=== PATIENT | female | born 1975 | race Caucasian/White ===

== ENCOUNTER → 2016-07-01 | Outpatient (CLI) | payer OTHER ==
[~2016-07-01] MED LIST: MTR600X PO; OXYC-57 PO; PRENTAB26 PO; RANI150T3 PO
[2016-07-01 14:53] LABS: URINE APPEARANCE CLEAR (CLEAR); URINE BILIRUBIN NEG (NEG); URINE COLOR YELLOW; URINE EPITHELIAL CELL AUTO >30 /lpf (0-5); URINE NITRITE NEG (NEG); UROBILINOGEN NEG (NEG)
[2016-07-01 15:00] LABS: MANUAL MICROSCOPIC REQUIRED? NO; REVIEW REQ? NO
== END | disposition home or self-care (01) ==
LOC: C.LABSPEC 13:58
PROVIDERS: ATTEND Family Medicine
DX: O09.523 Supervision of elderly multigravida, third trimester (principal)

== ENCOUNTER → 2016-07-01 | Outpatient (CLI) | payer OTHER ==
[2016-07-01 12:28] LABS: HEMATOCRIT 34.2 % (37-47)
[2016-07-01 12:54] LABS: GTGD 50 Grams
== END | disposition home or self-care (01) ==
LOC: C.LAB1850 10:00
PROVIDERS: ATTEND Obstetrics & Gynecology
DX: O09.523 Supervision of elderly multigravida, third trimester (principal)

== ENCOUNTER → 2016-08-26 | Outpatient (CLI) | payer OTHER | END | disposition home or self-care (01) | LOC: C.LABSPEC 11:33 | PROVIDERS: ATTEND Obstetrics & Gynecology | DX: O09.523 Supervision of elderly multigravida, third trimester (principal) ==

== ENCOUNTER 2016-09-20 02:59 | Inpatient (IN) | payer OTHER ==
--- NOTE | 2016-09-19 14:48 | PAT Medication Instructions ---
Service Date Sep 19, 2016. Current Home Medication List Multivit/Min/Iron/Fol Ac/Pren ( Vitamin), 1 TAB PO QAM Ranitidine Hcl (Zantac), 150 MG PO QAM Medication Instructions For Your Scheduled Surgery - Hold the following medications the morning of surgery: Multivit/Min/Iron/Fol Ac/Pren ( Vitamin), 1 TAB PO QAM - Take the following medications the morning of surgery with a sip of water: Ranitidine Hcl (Zantac), 150 MG PO QAM (if needed) If you have any questions please call us at [phone] or [phone] ( [place]) or [phone]
[2016-09-19 15:19] LABS: BASO % 0.1 %; BASO ABS # 0.01 K/uL (0-0.2); COMPLETE YES; EOS % 0.7 %; HEMATOCRIT 33.3 % (37-47); IG% 0.1 %; LYMPH % 24.2 %; LYMPH ABS # 1.96 K/uL (1.2-3.4); MEAN CELL VOLUME 86.7 fL (80-100); MEAN CORPUSCULAR HEMOGLOBIN 30.2 pg (25-34); MEAN CORPUSCULAR HGB CONC 34.8 g/dl (32-36); MEAN PLATELET VOLUME 10.6 fL (7.4-10.4); MONO % 4.9 %; PLATELET COUNT 195 K/uL (130-400); RED BLOOD COUNT 3.84 M/uL (4.2-5.4)
[~2016-09-20] VITALS: Ht 162.6 cm; Wt 71.4 kg
[2016-09-20] VITALS (11 sets, daily range): BP systolic 108–127; BP diastolic 67–75; PULSE 70–80; TEMP 36.4–36.8; O2SAT 97–99; Ht 162.6 cm; Wt 71.4 kg
[~2016-09-20 02:59] MED LIST changes: -MTR600X PO; -OXYC-57 PO
[2016-09-20 06:00] LABS: BASO % 0.3 %; BASO ABS # 0.03 K/uL (0-0.2); EOS % 1.6 %; HEMATOCRIT 34.7 % (37-47); IG% 0.2 %; LYMPH % 30.7 %; LYMPH ABS # 2.82 K/uL (1.2-3.4); MEAN CELL VOLUME 88.5 fL (80-100); MEAN CORPUSCULAR HEMOGLOBIN 30.6 pg (25-34); MEAN PLATELET VOLUME 10.6 fL (7.4-10.4); MONO % 7.1 %; NEUT % 60.1 %; PLATELET COUNT 202 K/uL (130-400); RED BLOOD COUNT 3.92 M/uL (4.2-5.4)
[2016-09-20] MEDS ORDERED: CEFAZOLIN 2000 MG/60 ML D5W IV SCH (06:00)
[2016-09-20] MEDS ORDERED: CITRIC ACID/SODIUM CITRATE 15 ML UDC PO SCH (06:00)
[2016-09-20] MEDS ORDERED: LACTATED RINGER'S 1000ML 1,000 ML IV SCH ×2 (06:00→08:43)
[2016-09-20 06:03] LABS: COMPLETE YES; MEAN CORPUSCULAR HGB CONC 34.6 g/dl (32-36)
[2016-09-20] MEDS ORDERED: MoRPHine SULFATE PF 1 MG/ML 10 ML AMP/VIAL ONE (07:06)
[2016-09-20] MEDS ORDERED: SODIUM CHLORIDE 0.9% 1000ML 1,000 ML IV PRN (07:23)
[2016-09-20] MEDS ORDERED: NALOXONE HCL INJ 0.08 MG in SYRINGE 1.8 ML IV PRN (07:23)
[2016-09-20] MEDS ORDERED: NALOXONE HCL INJ 1 MG in SODIUM CHLORIDE 0.9% 1000ML 1,000 ML IV PRN ×4 (07:23)
[2016-09-20] MEDS ORDERED: LACTATED RINGER'S 1000ML 500 ML IV PRN (07:23)
[2016-09-20] MEDS ORDERED: PHENYLEPHRINE 100MCG/ML 5ML SYR IV PRN (07:30)
[2016-09-20] MEDS ORDERED: ONDANSETRON INJ 2 MG/ML 2 ML VIAL IV PRN ×2 (07:30)
[2016-09-20] MEDS ORDERED: KETOROLAC TROMETHAMINE 30 MG/ML VIAL IV. PRN (07:30)
[2016-09-20] MEDS ORDERED: NALBUPHINE HCL INJ 10 MG/ML AMP IV PRN (07:30)
[2016-09-20] MEDS ORDERED: EpHEDrine SULFATE INJ 50 MG/ML AMP IV PRN ×2 (07:30)
[2016-09-20] MEDS ORDERED: PROMETHAZINE HCL INJ 25 MG in SODIUM CHLORIDE 0.9% 50ML 50 ML IV PRN (07:30)
[2016-09-20] MEDS ORDERED: NALOXONE HCL 0.4 MG/1 ML VIAL/CARP IV PRN (07:30)
[2016-09-20] MEDS ORDERED: PROMETHAZINE HCL INJ 12.5 MG in SODIUM CHLORIDE 0.9% 50ML 50 ML IV PRN (07:30)
[2016-09-20] MEDS ORDERED: MoRPHine SULFATE PF 1 MG/ML 10 ML AMP/VIAL EPI PRN (07:30)
[2016-09-20] MEDS ORDERED: MEPERIDINE HCL 25 MG/ML CARP IV PRN ×2 (07:30)
[2016-09-20] MEDS ORDERED: ATROPINE SULFATE 0.1 MG/ML 5ML SYR IV PRN (07:30)
[2016-09-20] MEDS ORDERED: DiphenhydrAMINE HCL 50 MG/ML VIAL IV PRN (07:30)
[2016-09-20] MEDS ORDERED: NO NARCOTICS OR SEDATIVES SCH (07:30)
--- NOTE | 2016-09-20 07:56 | HISTORY & PHYSICAL EXAMINATION ---
DATE OF ADMISSION: 09/20/2016 REASON FOR ADMISSION: Planned repeat section. HISTORY OF PRESENT ILLNESS: This is a 41-year-old -0-1-1 with a vega intrauterine at full term. She is presenting for a planned repeat section with tubal ligation. She declines trial of labor after . Her has been complicated by advanced maternal age. MEDICATIONS LIST: vitamins, Clindagel, and Zantac. ALLERGIES: No known drugs. PAST MEDICAL HISTORY: Varicella in childhood, prior ovarian cysts and cervical dysplasia. PAST SURGICAL HISTORY: LEEP in 1995 and sebaceous cysts carcinoma removed, wisdom teeth removed and tonsillectomy. OBSTETRIC HISTORY: Prior SAB in 2011 and prior full term section for failure to progress in 2013. 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 PHYSICAL EXAMINATION: VITAL SIGNS: Blood pressure the day preoperative was 124/74, weight 157. GENITOURINARY: Day of delivery, heart tones are 140, moderate variability, positive accels, no decels. [place] is showing irritability which the patient cannot appreciate. Cervical exam deferred at this time. HEART: Shows regular rate and rhythm. LUNGS: Clear to auscultation bilaterally. ABDOMEN: Gravid and nontender. EXTREMITIES: Without edema. ASSESSMENT AND PLAN: A 41-year-old 3, para 1-0-1-1 at full term for planned repeat section and tubal ligation. The patient was consented yesterday in the office for both and again confirmed this morning in labor and delivery that she desires tubal ligation. She understands the permanent irreversible nature and the risk of regret. She desires to proceed.
[2016-09-20] MEDS ORDERED: ONDANSETRON INJ 2 MG/ML 2 ML VIAL ONE (08:18)
[2016-09-20] MEDS ORDERED: METOCLOPRAMIDE HCL INJ 5 MG/ML 2 ML VIAL ONE (08:18)
[2016-09-20] MEDS ORDERED: EpHEDrine SULFATE 50MG/5ML SYR ONE (08:19)
[2016-09-20] MEDS ORDERED: OXYTOCIN INJ 10 UNITS/ML VIAL ONE (08:24)
[2016-09-20] MEDS ORDERED: PHENYLEPHRINE 100MCG/ML 5ML SYR ONE (08:24)
--- NOTE | 2016-09-20 08:43 | [facility] Post Operative Brief Note ---
Immediate Operative Summary Operative Date Sep 20, 2016. Pre-Operative Diagnosis 1. Prior Caesearean Section 2. Desires Sterilization 3. Declines Post-Operative Diagnosis Same Procedure(s) Performed 1. Repeat lower uterine transverse caesarean section for the of a viable male child at 0756. 2. Bilateral Tubal Ligation Surgeon Dr. Granda Marketing Program Coordinator Surgeon(s) Dr. Byrne Estimated Blood Loss 600cc Findings NOrmal tubes and ovaries bilaterally Specimens Placenta: Hold Cord blood obtained Right and left portions of the fallopian tubes Complication(s) None Disposition L&D
[2016-09-20] MEDS ORDERED: LANOLIN OINT EXT PRN ×2 (08:45)
[2016-09-20] MEDS ORDERED: DIPHTHERIA/TETANUS/PERTUSSIS 0.5 ML SYR/VIAL IM. ONE (08:45)
[2016-09-20] MEDS ORDERED: BENZOCAINE 20% AER SPR 82.5 GM CAN EXT PRN (08:45)
[2016-09-20] MEDS ORDERED: HYDROCORTISONE ACETATE 25 MG SUPP PR PRN (08:45)
[2016-09-20] MEDS ORDERED: SUPERCREAM 0.870 % 15GM JAR EXT PRN (08:45)
--- NOTE | 2016-09-20 09:04 | [facility] Post Operative Brief Note ---
Immediate Operative Summary Operative Date Sep 20, 2016. Pre-Operative Diagnosis 1. Prior Caesearean Section 2. Desires Sterilization 3. Declines Post-Operative Diagnosis Same Procedure(s) Performed 1. Repeat lower uterine transverse caesarean section for the of a viable male child at 0756. 2. Bilateral Tubal Ligation Surgeon Dr. Granda Hospice Registered Nurse Surgeon(s) Dr. Byrne Estimated Blood Loss 600cc Findings Delivered a viable male , APGARS 9/9. Weight 6lbs 14oz. Normal uterus, fallopian tubes and ovaries bilaterally. Specimens Placenta: Hold Cord blood obtained Right and left portions of the fallopian tubes Drains Rider to gravity Anesthesia Spinal Complication(s) None Disposition L&D
[2016-09-20] MEDS: KETOROLAC TROMETHAMINE 30 MG/ML VIAL IV. PRN ×3 (09:37→23:00)
[2016-09-20] MEDS ORDERED: OXYTOCIN INJ 30 UNITS in LACTATED RINGER'S 1000ML 1,000 ML IV SCH (10:00)
[2016-09-20] MEDS: SIMETHICONE 80 MG CHEW PO SCH ×3 (12:27→19:39)
--- NOTE | 2016-09-20 15:42 | Anesthesiology Progress Note ---
Anesthesia Post Op Note Date & Time Sep 20, 2016 at 15:41 Vital Signs Pain Intensity: 0.0 Vital Signs Past 12 Hours Date Time Temp Pulse Resp B/P Pulse Ox O2 Delivery O2 Flow Rate FiO2 09/20/16 12:50 20 98 09/20/16 12:50 36.6 76 20 127/75 98 Room Air 09/20/16 11:50 97 Room Air 09/20/16 11:50 20 97 09/20/16 11:50 36.4 70 20 111/67 97 Room Air Notes Mental Status: alert / awake / arousable, participated in evaluation Pt Amnestic to Procedure: Yes Nausea / Vomiting: adequately controlled Pain: adequately controlled Airway Patency, RR, SpO2: stable & adequate BP & HR: stable & adequate Hydration State: stable & adequate Anesthetic Complications: no major complications apparent
--- NOTE | 2016-09-20 15:50 | OPERATIVE REPORT ---
DATE OF OPERATION: 09/20/2016 PREOPERATIVE DIAGNOSES: 1. Prior section. 2. Desires sterilization. 3. Declines vaginal after . POSTOPERATIVE DIAGNOSES: Same. PROCEDURE: Repeat lower uterine transverse section for the of a viable male child at 7:56 a.m., bilateral tubal ligation. SURGEON: Dr. Granda. COMPENSATION ADMINISTRATOR: [email or web address]. ESTIMATED BLOOD LOSS: 600 mL FINDINGS: Normal tubes and ovaries bilaterally. SPECIMENS: Placenta for hold and cord blood and right and left portions of fallopian tubes. COMPLICATIONS: None. DISPOSITION: Stable to labor and delivery. DESCRIPTION: Hilda was placed on the table in the supine position with a leftward tilt, prepped and draped in standard sterile fashion and a hard time-out was taken prior to proceeding. After adequate anesthesia had been established, the prior Pfannenstiel incision was reopened using a scalpel. This was carried down sharply to the fascia which was incised using Bovie electrocautery. The fascia was elevated and both sharply and bluntly dissected off the underlying rectus. The midline of the rectus was naturally . The peritoneum was bluntly entered. A bladder blade was placed. The lower uterine segment was examined and found to be well developed. The bladder flap was created and hysterotomy was then created with a fresh blade with final entry being made to the uterus in a blunt manner using the surgeon's finger. The hysterotomy was extended and the head of the was then gently elevated to the hysterotomy where it was delivered using mild fundal pressure. Once the was delivered, the cord was doubly clamped and cut and the infant was taken to the warmer for pediatric attention. Of note, the male was noted to urinate while on the surgical field, he also was able to hypoxemic respiratory efforts and move all 4 extremities equally. The placenta was then manually extracted. The uterus was exteriorized, cleared of all clot and debris using a damp lap sponge and the hysterotomy was repaired in 2 layer fashion using 0 Vicryl suture with a locked inner layer and a running imbricating layer. Once this was done, the attention was turned to the fallopian tubes. The patient was asked one final time to confirm that she wished permanent sterilization, which she confirmed that she did. Each tube was in turn elevated using a [place] clamp. A knuckle of tube was isolated using a double ligature of chromic suture. The isolated knuckle of tube was excised using Metzenbaum scissors and sent for pathology. Once this had been completed on both sides, hemostasis was achieved at both stumps. The posterior gutter was cleared of all clot and debris. The uterus was then gently reinternalized. The hysterotomy was reexamined and found to be hemostatic. The patient was asked whether she would prefer her rectus muscles sutured together in the midline or not and she elected not. Fascia was then closed using #1 Vicryl suture in a running nonlocked manner. At the completion of which the fascia was examined and found to be free of any defect. The subcutaneous tissue was copiously irrigated and then gently reapproximated using 3-0 chromic. The skin was closed with 4-0 Monocryl and a Dermabond dressing was applied. The Rider was noted to be draining clear yellow urine and the patient was transferred in stable condition back to the recovery room after the procedure was completed. I attest to the content of the Intraoperative Record and any orders documented therein. Any exceptio ns are noted below.
[2016-09-20] MEDS: DOCUSATE SODIUM 100 MG CAP PO SCH (19:39)
[2016-09-21] VITALS: O2SAT 97
[2016-09-21] MEDS ORDERED: DC INTRASPINAL MORPHINE ONE
[2016-09-21] MEDS ORDERED: OXYCODONE/ACETAMINOPHEN 5-325 TAB PO PRN ×2 (00:01)
[2016-09-21] MEDS ORDERED: KETOROLAC TROMETHAMINE 30 MG/ML VIAL IV. PRN (00:01)
[2016-09-21] MEDS ORDERED: MEPERIDINE HCL 50 MG/ML CARP IV PRN (00:01)
[2016-09-21] MEDS ORDERED: ONDANSETRON INJ 2 MG/ML 2 ML VIAL IV PRN (00:01)
[2016-09-21] MEDS ORDERED: DiphenhydrAMINE HCL 50 MG/ML VIAL IV PRN (00:01)
[2016-09-21] MEDS ORDERED: MEPERIDINE HCL 75 MG/ML CARP IV PRN (00:01)
[2016-09-21] MEDS ORDERED: PROMETHAZINE HCL INJ 25 MG in SODIUM CHLORIDE 0.9% 50ML 50 ML IV PRN (00:01)
[2016-09-21 03:50] VITALS: BP 117/69; PULSE 92; TEMP 36.8; O2SAT 97
[2016-09-21] MEDS: IBUPROFEN 600 MG TAB PO PRN ×5 (04:52→20:40)
[2016-09-21 06:45] LABS: HEMATOCRIT 26.2 % (37-47); MEAN CELL VOLUME 87.9 fL (80-100); MEAN CORPUSCULAR HEMOGLOBIN 29.9 pg (25-34); MEAN PLATELET VOLUME 9.9 fL (7.4-10.4); PLATELET COUNT 151 K/uL (130-400); RED BLOOD COUNT 2.98 M/uL (4.2-5.4); WHITE BLOOD COUNT 13.51 K/uL (4.8-10.8)
[2016-09-21 07:05] LABS: BASO % 0.1 %; BASO ABS # 0.02 K/uL (0-0.2); COMPLETE YES; EOS % 0.7 %; IG% 0.2 %; LYMPH % 12.7 %; LYMPH ABS # 1.72 K/uL (1.2-3.4); MONO % 4.7 %; NEUT % 81.6 %
--- NOTE | 2016-09-21 07:26 | Progress Note ---
Subjective Sep 21, 2016. Subjective conversation w/ patient, physical exam Ambulation: ambulating normally Voiding: no voiding problems Passing Gas: Yes Diet Tolerance: Clear Liquids Lochia: Moderate Feeding Type: Breast Feeding Pain: controlled with motrin Review of Systems Constitutional: No chills, No fatigue, No fever, No problem reported, No sweats , No weakness, No weight loss Breast: No breast lump, No breast pain, No change in shape, No nipple discharge , No problem reported, No see HPI Female : No abnormal vaginal bleeding, No dysuria, No hematuria, No incontinence, No problem reported, No see HPI, No urinary frequency, No vaginal discharge Objective Vital Signs Date Time Temp Pulse Resp B/P Pulse Ox O2 Delivery O2 Flow Rate FiO2 09/21/16 03:50 36.8 92 20 117/69 97 Room Air 09/21/16 00:00 18 97 09/20/16 23:05 36.8 76 18 109/70 99 Room Air 09/20/16 23:05 99 Room Air 09/20/16 23:05 18 99 09/20/16 22:00 18 98 09/20/16 21:00 16 97 09/20/16 20:00 18 98 09/20/16 19:30 36.5 76 20 108/67 98 Room Air 09/20/16 19:30 20 98 09/20/16 18:00 16 99 09/20/16 17:00 16 98 09/20/16 16:00 18 99 09/20/16 15:20 36.7 80 18 114/73 98 Room Air 09/20/16 15:20 18 99 09/20/16 15:20 98 Room Air 09/20/16 12:50 20 98 09/20/16 12:50 36.6 76 20 127/75 98 Room Air 09/20/16 11:50 97 Room Air 09/20/16 11:50 20 97 09/20/16 11:50 36.4 70 20 111/67 97 Room Air Physical Exam General Appearance: WELL-APPEARING, NO APPARENT DISTRESS Abdomen: soft Fundus: Firm, Non-Tender, Relation to Umbilicus (at U) Incision Description: Clean, Dry & Intact Extremities: no calf tenderness Laboratory Results Last 24 Hours Test 09/21/16 06:17 White Blood Count 13.51 K/uL Red Blood Count 2.98 M/uL Hemoglobin 8.9 g/dL Hematocrit 26.2 % Mean Corpuscular Volume 87.9 fL Mean Corpuscular Hemoglobin 29.9 pg Mean Corpuscular Hemoglobin Concent 34.0 g/dl Platelet Count 151 K/uL Mean Platelet Volume 9.9 fL Neutrophils (%) (Auto) 81.6 % Lymphocytes (%) (Auto) 12.7 % Monocytes (%) (Auto) 4.7 % Eosinophils (%) (Auto) 0.7 % Basophils (%) (Auto) 0.1 % Neutrophils # (Auto) 11.02 K/uL Lymphocytes # (Auto) 1.72 K/uL Monocytes # (Auto) 0.63 K/uL Eosinophils # (Auto) 0.09 K/uL Basophils # (Auto) 0.02 K/uL RDW Standard Deviation 41.7 fL RDW Coefficient of Variation 13.2 % Immature Granulocyte % (Auto) 0.2 % Immature Granulocyte # (Auto) 0.03 K/uL Red Blood Cell Morphology Unremarkable Assessment and Plan Day#: 1 Continue Routine Care: stable post-op course continue current care plan.
[2016-09-21] MEDS: RANITIDINE HCL 150 MG TAB PO SCH (08:00)
[2016-09-21] MEDS: DOCUSATE SODIUM 100 MG CAP PO SCH ×2 (08:56→19:33)
[2016-09-21] MEDS: FERROUS SULFATE 325 MG TAB PO SCH (08:56)
[2016-09-21] MEDS: PRENATAL VITAMIN TAB PO SCH (08:57)
[2016-09-21] MEDS: SIMETHICONE 80 MG CHEW PO SCH ×4 (08:57→19:33)
[2016-09-21 09:00] VITALS: BP 114/71; PULSE 86; TEMP 36.7; O2SAT 96
[2016-09-21 16:15] VITALS: BP 109/69; PULSE 87; TEMP 36.9; O2SAT 96
[2016-09-21 23:15] VITALS: BP 112/69; PULSE 81; TEMP 36.6; O2SAT 96
[2016-09-22] MEDS: IBUPROFEN 600 MG TAB PO PRN ×6 (01:59→21:52)
[2016-09-22 07:29] VITALS: BP 118/72; PULSE 73; TEMP 36.6
[2016-09-22] MEDS: RANITIDINE HCL 150 MG TAB PO SCH (08:00)
[2016-09-22] MEDS: PRENATAL VITAMIN TAB PO SCH (08:43)
[2016-09-22] MEDS: DOCUSATE SODIUM 100 MG CAP PO SCH ×2 (08:43→20:20)
[2016-09-22] MEDS: SIMETHICONE 80 MG CHEW PO SCH ×4 (08:43→20:20)
[2016-09-22] MEDS: FERROUS SULFATE 325 MG TAB PO SCH (08:43)
--- NOTE | 2016-09-22 08:47 | Progress Note ---
Subjective Sep 22, 2016. Subjective conversation w/ patient, physical exam Ambulation: ambulating normally Voiding: no voiding problems Passing Gas: Yes Diet Tolerance: Regular Diet Lochia: Moderate Feeding Type: Breast Feeding Review of Systems Constitutional: No chills, No fever Respiratory: No cough Cardiac: No chest pain Abdomen: No nausea, No vomiting Objective Vital Signs Date Time Temp Pulse Resp B/P Pulse Ox O2 Delivery O2 Flow Rate FiO2 09/22/16 07:29 36.6 73 20 118/72 09/21/16 23:15 Room Air 09/21/16 23:15 36.6 81 16 112/69 96 Room Air 09/21/16 16:15 96 Room Air 09/21/16 16:15 36.9 87 18 109/69 96 Room Air 09/21/16 09:00 36.7 86 18 114/71 96 Room Air 09/21/16 09:00 96 Room Air Physical Exam General Appearance: WELL-APPEARING, NO APPARENT DISTRESS Respiratory/Chest: no respiratory distress, no accessory muscle use Cardiovascular: no edema Abdomen: non tender, soft Fundus: Firm Incision Description: Clean, Dry & Intact Extremities: no calf tenderness Assessment and Plan Post-Op Day#: 2 Continue Routine Care: Recovering well. Patient desires stay until POD#3 at this time.
[2016-09-22 17:00] VITALS: BP 112/74; PULSE 81; TEMP 36.9; O2SAT 97
[2016-09-22 23:50] VITALS: BP 120/77; PULSE 74; TEMP 36.6; O2SAT 99
[2016-09-23] MEDS: IBUPROFEN 600 MG TAB PO PRN ×3 (03:42→11:44)
--- NOTE | 2016-09-23 06:33 | Medical Student: [facility] ---
Med Student CAMPUS RECEPTIONIST Progress Nt Date of Service Sep 23, 2016. Subjective conversation w/ patient Ambulation: ambulating normally Voiding: no voiding problems Passing Gas: Yes Diet Tolerance: Regular Diet Lochia: Small Feeding Type: Breast Feeding Pain: 2/10, controlled with motrin Review of Systems Constitutional: No chills, No fever Respiratory: No cough, No shortness of breath Cardiac: No chest pain, No edema, No palpitations Breast: No breast pain, No problem reported Abdomen: + pain ( incision site mildly painful), No nausea, No vomiting Female : No dysuria, No urinary frequency Objective Vital Signs Date Time Temp Pulse Resp B/P Pulse Ox O2 Delivery O2 Flow Rate FiO2 09/22/16 23:50 Room Air 09/22/16 23:50 36.6 74 16 120/77 99 Room Air 09/22/16 17:00 36.9 81 18 112/74 97 Room Air 09/22/16 17:00 97 Room Air 09/22/16 08:55 Room Air 09/22/16 07:29 36.6 73 20 118/72 Physical Exam General Appearance: WELL-APPEARING, NO APPARENT DISTRESS Respiratory/Chest: lungs clear, normal breath sounds, no respiratory distress Cardiovascular: regular rate, rhythm, no edema, no gallop, no murmur Abdomen: normal bowel sounds, soft Fundus: Firm, Tender, Relation to Umbilicus (3cm below umbilicus) Extremities: non-tender, no pedal edema, no calf tenderness Medications Current Inpatient Medications Medications (Trade) Dose Ordered Sig/Anca Route Start Time Stop Time Status Last Admin Dose Admin Prenat Multivit/ [place]/Iron/Folic Ac ( Vitamin Tab) 1 tab QAM PO 09/21/16 08:00 10/21/16 07:59 09/22/16 08:43 1 TAB Ranitidine HCl 150 mg 150 mg QAM PO 09/21/16 08:00 10/21/16 07:59 Lactated Ringer's (Lr 1000ml) 1,000 ml @ 125 mls/hr Q8H IV 09/20/16 08:43 10/20/16 08:42 09/20/16 17:27 125 MLS/HR Ketorolac Tromethamine (Toradol Inj) 30 mg Q6H PRN IV. 09/21/16 00:01 09/26/16 00:00 Meperidine HCl (Demerol Inj) 50 mg Q4H PRN IV 09/21/16 00:01 10/05/16 00:00 Meperidine HCl (Demerol Inj) 75 mg Q4H PRN IV 09/21/16 00:01 10/05/16 00:00 Oxycodone/ Acetaminophen (Percocet 5-325mg Tab) 1 tab Q4H PRN PO 09/21/16 00:01 10/05/16 00:00 Oxycodone/ Acetaminophen (Percocet 5-325mg Tab) 2 tab Q4H PRN PO 09/21/16 00:01 10/05/16 00:00 Ibuprofen 600 mg 600 mg Q4H PRN PO 09/21/16 00:01 10/21/16 00:00 Future hold 09/23/16 03:42 600 MG Promethazine HCl/ Sodium Chloride (Phenergan Inj/ Nss 50ml) 51 ml @ 204 mls/hr Q4H PRN IV 09/21/16 00:01 10/21/16 00:00 Ondansetron HCl (Zofran Inj) 4 mg Q4H PRN IV 09/21/16 00:01 10/21/16 00:00 Docusate Sodium (coLACE CAP) 100 mg BID PO 09/20/16 20:00 10/20/16 19:59 09/22/16 20:20 100 MG Cocaine HCl (Supercream 0.870% Cr) BID PRN EXT 09/20/16 08:45 10/04/16 08:44 Lanolin (Lanolin Oint) PRN PRN EXT 09/20/16 08:45 10/20/16 08:44 Hydrocortisone Acetate (Anusol Hc Supp) 25 mg BID PRN CA 09/20/16 08:45 10/20/16 08:44 Benzocaine (Dermoplast Aero Spr) 1 appln PRN PRN EXT 09/20/16 08:45 10/20/16 08:44 Simethicone (Mylicon Chew Tab) 80 mg QID PO 09/20/16 12:04 10/20/16 12:59 09/22/16 20:20 80 MG Diphenhydramine HCl (Benadryl Cap) 25 mg QID PRN PO 09/21/16 00:01 10/21/16 00:00 Diphenhydramine HCl (Benadryl Inj) 25 mg QID PRN IV 09/21/16 00:01 10/21/16 00:00 Ferrous Sulfate (Feosol Tab) 325 mg QAM PO 09/21/16 08:00 10/21/16 07:59 09/22/16 08:43 325 MG Assessment and Plan Post-Op Day Number: 3 Continue Routine Care: ASSESSMENT: Grabiel is a 41 year old [id number], post op day #3 from an elective repeat section and tubal ligation. was complicated by advanced maternal age. She is doing well clinically. Incision clean dry and intact. PLAN: Encourage ambulation as tolerated. Encourage . Motrin PRN for pain. Continue PO diet and fluids. No lifting heavier than baby for 2-3 weeks.
--- NOTE | 2016-09-23 06:48 | Progress Note ---
Subjective Sep 23, 2016. Subjective conversation w/ patient, physical exam, lab review Ambulation: ambulating normally Voiding: no voiding problems Passing Gas: Yes Diet Tolerance: Regular Diet Lochia: Small Feeding Type: Breast Feeding Pain: 1-2/10 improves with medication Comment: Patient was seen at the bedside. No acute event overnight. Review of Systems Constitutional: No fever Respiratory: No cough, No shortness of breath Cardiac: No chest pain, No edema Breast: No breast lump Abdomen: No nausea, No pain, No vomiting Female : No dysuria Denies headache Objective Vital Signs Date Time Temp Pulse Resp B/P Pulse Ox O2 Delivery O2 Flow Rate FiO2 09/22/16 23:50 Room Air 09/22/16 23:50 36.6 74 16 120/77 99 Room Air 09/22/16 17:00 36.9 81 18 112/74 97 Room Air 09/22/16 17:00 97 Room Air 09/22/16 08:55 Room Air 09/22/16 07:29 36.6 73 20 118/72 Physical Exam General Appearance: WELL-APPEARING, WD/WN Respiratory/Chest: chest non-tender, lungs clear Cardiovascular: regular rate, rhythm Abdomen: normal bowel sounds, non tender, soft Fundus: Firm, Relation to Umbilicus (3cm below) Incision Description: Clean, Dry & Intact Extremities: non-tender, no pedal edema, no calf tenderness Medications Current Inpatient Medications Medications (Trade) Dose Ordered Sig/Anca Route Start Time Stop Time Status Last Admin Dose Admin Prenat Multivit/ [employer]/Iron/Folic Ac ( Vitamin Tab) 1 tab QAM PO 09/21/16 08:00 10/21/16 07:59 09/22/16 08:43 1 TAB Ranitidine HCl 150 mg 150 mg QAM PO 09/21/16 08:00 10/21/16 07:59 Lactated Ringer's (Lr 1000ml) 1,000 ml @ 125 mls/hr Q8H IV 09/20/16 08:43 10/20/16 08:42 09/20/16 17:27 125 MLS/HR Ketorolac Tromethamine (Toradol Inj) 30 mg Q6H PRN IV. 09/21/16 00:01 09/26/16 00:00 Meperidine HCl (Demerol Inj) 50 mg Q4H PRN IV 09/21/16 00:01 10/05/16 00:00 Meperidine HCl (Demerol Inj) 75 mg Q4H PRN IV 09/21/16 00:01 10/05/16 00:00 Oxycodone/ Acetaminophen (Percocet 5-325mg Tab) 1 tab Q4H PRN PO 09/21/16 00:01 10/05/16 00:00 Oxycodone/ Acetaminophen (Percocet 5-325mg Tab) 2 tab Q4H PRN PO 09/21/16 00:01 10/05/16 00:00 Ibuprofen 600 mg 600 mg Q4H PRN PO 09/21/16 00:01 10/21/16 00:00 Future hold 09/23/16 03:42 600 MG Promethazine HCl/ Sodium Chloride (Phenergan Inj/ Nss 50ml) 51 ml @ 204 mls/hr Q4H PRN IV 09/21/16 00:01 10/21/16 00:00 Ondansetron HCl (Zofran Inj) 4 mg Q4H PRN IV 09/21/16 00:01 10/21/16 00:00 Docusate Sodium (coLACE CAP) 100 mg BID PO 09/20/16 20:00 10/20/16 19:59 09/22/16 20:20 100 MG Cocaine HCl (Supercream 0.870% Cr) BID PRN EXT 09/20/16 08:45 10/04/16 08:44 Lanolin (Lanolin Oint) PRN PRN EXT 09/20/16 08:45 10/20/16 08:44 Hydrocortisone Acetate (Anusol Hc Supp) 25 mg BID PRN [place] 09/20/16 08:45 10/20/16 08:44 Benzocaine (Dermoplast Aero Spr) 1 appln PRN PRN EXT 09/20/16 08:45 10/20/16 08:44 Simethicone (Mylicon Chew Tab) 80 mg QID PO 09/20/16 12:04 10/20/16 12:59 09/22/16 20:20 80 MG Diphenhydramine HCl (Benadryl Cap) 25 mg QID PRN PO 09/21/16 00:01 10/21/16 00:00 Diphenhydramine HCl (Benadryl Inj) 25 mg QID PRN IV 09/21/16 00:01 10/21/16 00:00 Ferrous Sulfate (Feosol Tab) 325 mg QAM PO 09/21/16 08:00 10/21/16 07:59 09/22/16 08:43 325 MG Assessment and Plan Post-Op Day#: 3 Continue Routine Care: A/P: This is a 41 y/o female, , s/p elective repeat and bilateral tubal ligation. She is ambulating and clinically stable to discharge. - Vital signs are reviewed and WNL (Tmax 36.9 ) - Last Hgb 8.9 - Blood type O+, GBS neg, Rubella Immune - No signs of depression. - Routine care - Discussed resting, feeding, pain control, mastitis, control, follow up in 6 weeks and reasons to call sooner, if necessary. - Continue with pain medication as needed, and continue vitamins. - Encourage breast feeding and educate about breast feeding - Patient understands and keen for home. - Plan to discharge home Resident Physician Supervision Note: I was present with Dr. Byrne during the history and exam. I discussed the case with the resident and agree with the findings and plan as documented in the note. Any exceptions or clarifications are listed here: [None] Documented By: Selena Granda
--- NOTE | 2016-09-23 07:00 | Discharge Instructions ---
Discharge Instructions Date of Service Sep 22, 2016. Admission Reason for Admission: Previous Section Discharge Discharge Diagnosis / Problem: S/p repeat elective & bilateral tubal ligation Discharge Goals Goal(s): Routine recovery after Medications Continue Dispensed Medications: supercream, dermaplast, tucks, lansinoh Activity Recommendations Activity Limitations: as noted below . Instructions / Follow-Up Instructions / Follow-Up ACTIVITY RECOMMENDATIONS: * Gradual return to full activity over the next 2-3 weeks. * No lifting - nothing heavier than baby over the next 2-3 weeks. * Do not engage in vigorous exercise, sexual activity or sports until cleared by your physician. * Do not drive or operate any motorized equipment until cleared by your physician. * You may shower/bathe daily. MEDICATIONS: For discomfort or pain, you may use Acetaminophen (Tylenol), Ibuprofen (Advil), or Naproxen (Aleve) following the package directions. For constipation you may use Colace following the package directions. BREAST CARE: If you are not breast feeding: * Wear a supportive bra 24 hours a day for one to two weeks. * Avoid stimulating your breasts and nipples as much as possible during the first few weeks after delivery. * When taking a shower, have the warm water hit your back, not breasts. * When your breasts feel full, apply ice packs. Usually three to four times a day helps ease the discomfort. * Take a mild pain medication (Tylenol / Motrin) when you are uncomfortable. If breast feeding: * Use breast milk to lubricate nipples. Lansinoh cream may be used for sore nipples. You do not need to remove cream prior to breast feeding. If using a different brand of cream, check the label for directions regarding removal of cream prior to nursing. * Wear a supportive bra. * If having problems with breasts or breast feeding, call a implementation consultant or your health care provider. SPECIAL CARE INSTRUCTIONS: When you are discharged from the hospital, it is important for you to follow the instructions listed below: * During the first week at home, you should be able to care for yourself and your baby. In addition, the usual light household activities are encouraged. * Limit your activities to the way you feel. Do not try to clean the house or move furniture. Be sensible. * If you actively engage in sports and have done so up until the time of your delivery, you may resume these activities as soon as you feel able. This may take up to one month or even longer. Use good judgment. * Continue to take your vitamins for at least six weeks after the of your baby. * Your diet need not be limited unless you were on a special diet before your delivery. Breast-feeding mothers need around 2500 calories per day and at least 64-80 ounces of fluid per day (8 to 10 glasses). * You should eat foods from the four major food groups. Crash diets or fad diets are to be avoided. Eating lean meats, fresh fruits and vegetables, low-fat dairy products, high fiber foods and a regular exercise program, will help you get back to your pre- weight without putting your health at risk. * Constipation is sometimes a problem after delivery. Take a mild laxative as needed. If breast feeding, Milk of Magnesia is acceptable to use. You may use a suppository or Fleets enema. * A daily shower or tub bath is suggested. Wash incision daily with warm soapy water and pat dry. It doesn't need to be covered unless drainage is present. * A bloody vaginal discharge will usually continue until around four weeks . A small amount of bleeding may continue for as long as six weeks. Vaginal discharge changes from the bright red bleeding after delivery to pink then brownish and finally yellowish-pink before becoming white and disappearing. * Bleeding may increase with activity. Your first period may come in 4-8 weeks. If you are breast feeding, your period may be delayed even longer. * [place] (sex) can begin whenever both you and your partner feel comfortable and do not have any form of genital infection. It is recommended that you wait at least six weeks for internal and external healing to occur. If you have questions, please talk to your health care practitioner. A condom should be used to prevent infection and . * Foreplay, gentle intercourse and lubrication is very important the first several times to prevent pain. A water-based lubricant such as K-Y jelly or Astroglide may be used. * If you have RH negative blood and your baby is RH positive, you will receive RHOGAM by injection prior to discharge. The nurse will give you a card to keep with you that has the date and place that you received RHOGAM after delivery. * During your care, you had a Rubella screen done to check for the presence of rubella antibodies in your blood. If your test was negative, you will receive a Rubella vaccine prior to discharge. This vaccine may cause a fever, soreness at the injection site and flu-like symptoms. If these symptoms persist, notify your health care practitioner. is not advised for one month after a Rubella vaccine. * Verbalizes understanding of car seat law as reviewed with patient nursing. * Car Seat hand-out given and reviewed with patient by nursing. * Shaken baby information reviewed with patient by nursing. Call you doctor if: * Heavy bleeding (saturating several pads an hour) or passing clots the size of your fist. * A fever >101 degrees F (38.3 degrees C) on two occasions four hours apart and /or chills. * Unusual pain in the pelvic or vaginal areas. * Call the doctor for any increased redness, drainage or swelling around the incision and any pain unrelieved by prescribed pain medication. * "Baby Blues" lasting longer than two weeks. If you have any questions or concerns, call your health care practitioner at . FOLLOW UP VISIT: * Please call the office at to schedule a 6 week examination. It is important you keep this appointment. It is important for you to make arrangements for either yearly or twice yearly check-ups thereafter. Current Hospital Diet Patient's current hospital diet: Regular OB Diet Discharge Diet Recommended Diet: Regular Diet Procedures Procedures Performed: 1. Repeat lower uterine transverse caesarean section for the of a viable male child at 0756. 2. Bilateral Tubal Ligation Pending Studies Studies pending at discharge: no Medical Emergencies . Who to Call and When: Medical Emergencies: If at any time you feel your situation is an emergency, please call [phone] immediately. . Non-Emergent Contact Non-Emergency issues call your: [facility] Faculty Assistant Call Non-Emergent contact if: you have a fever, temperature is above 101 . . "Provider Documentation" section prepared by Es Byrne. VTE Core Measure Inpt VTE Proph given/why not?: Treatment not indicated
[2016-09-23] MEDS: DOCUSATE SODIUM 100 MG CAP PO SCH (07:25)
[2016-09-23] MEDS: PRENATAL VITAMIN TAB PO SCH (07:25)
[2016-09-23] MEDS: SIMETHICONE 80 MG CHEW PO SCH ×2 (07:25→11:44)
[2016-09-23] MEDS: FERROUS SULFATE 325 MG TAB PO SCH (07:25)
[2016-09-23] MEDS ORDERED: OXYC-57 PO (07:50)
--- NOTE | 2016-09-23 07:56 | Anesthesiology Progress Note ---
Anesthesia Post Op Note Date & Time Sep 23, 2016 at 07:55 Vital Signs Pain Intensity: 3.0 Vital Signs Past 12 Hours Date Time Temp Pulse Resp B/P Pulse Ox O2 Delivery O2 Flow Rate FiO2 09/22/16 23:50 Room Air 09/22/16 23:50 36.6 74 16 120/77 99 Room Air Notes Mental Status: alert / awake / arousable, participated in evaluation Pt Amnestic to Procedure: Yes Nausea / Vomiting: adequately controlled Pain: adequately controlled Airway Patency, RR, SpO2: stable & adequate BP & HR: stable & adequate Hydration State: stable & adequate Neuraxial Anesthesia: sensory block resolved Anesthetic Complications: no major complications apparent
[2016-09-23 08:00] VITALS: BP 117/80; PULSE 80; TEMP 36.8
[2016-09-23] MEDS: RANITIDINE HCL 150 MG TAB PO SCH (08:00)
[2016-09-23 12:04] VITALS: BP_DIAS 80; PULSE 80; TEMP 36.8
--- NOTE | 2016-09-26 09:36 | DISCHARGE SUMMARY ---
REASON FOR ADMISSION: Hilda was admitted for planned repeat section. She is a 41-year-old G3, P1-0-1-1 that presented at term. Her repeat section with tubal ligation was uncomplicated. Please see operative report for details. Her postop course was similarly uncomplicated. She had a postop hemoglobin of 8.9, which was managed with oral iron. She additionally had normal vital signs and was clinically well throughout the course of her recovery. She was discharged to home on the morning of the with medications including 15 tablets of Percocet and instructions to follow up with at the usual 6-week interval.
== END 2016-09-23 13:05 | disposition home or self-care (01) | DRG 766 ==
LOC: C.LD 05:25 → EDSTATUS 07:30 → C.OBG 12:04
PROVIDERS: ADMIT Obstetrics & Gynecology; ATTEND Obstetrics & Gynecology
PROC: 10D00Z1 Extraction of Products of Conception, Low, Open Approach (ICD-10-PCS; principal; 2016-09-20 07:30)
PROC: 0UB70ZZ Excision of Bilateral Fallopian Tubes, Open Approach (ICD-10-PCS; principal; 2016-09-20 07:30)
DX: O34.219 Maternal care for unspecified type scar from previous cesarean delivery (principal); Z37.0 Single live birth; O26.893 Other specified pregnancy related conditions, third trimester; Z30.2 Encounter for sterilization; Z79.899 Other long term (current) drug therapy; O99.62 Diseases of the digestive system complicating childbirth; K21.9 Gastro-esophageal reflux disease without esophagitis; Z3A.39 39 weeks gestation of pregnancy